=== PATIENT | female | born 1990 | race Asian ===

== ENCOUNTER 2025-03-31 02:27 | Emergency (ER) | payer BC ==
[~2025-03-31] VITALS: Ht 162.6 cm; Wt 54.4 kg
[2025-03-31] MEDS ORDERED: SUCRALFATE 1 G/10 ML UDC ONE (03:01)
[2025-03-31] MEDS ORDERED: ONDANSETRON HCL/PF 4 MG/2 ML VIAL ONE (03:01)
[2025-03-31] MEDS ORDERED: PANTOPRAZOLE 40 MG VIAL ONE (03:01)
[2025-03-31] MEDS ORDERED: FAMOTIDINE/PF INJ 20 MG/2 ML VIAL IV ONE (03:01)
[2025-03-31 03:07] LABS: PLATELET COUNT (AUTO) 236 K/uL (150-450); RED BLOOD CELL COUNT(AUTO) 4.44 MIL/uL (4.0-5.2); RED CELL DISTRIBUTION WIDTH 12.5 % (11.5-15.0); WHITE BLOOD COUNT (AUTO) 11.4 K/uL (4.3-11.0)
[2025-03-31] MEDS: ONDANSETRON HCL/PF - ER 4 MG/2 ML VIAL IV ONE (03:09)
[2025-03-31] MEDS: IV NS 0.9% 1,000 ML BAG IV ONE ×2 (03:09→03:43)
[2025-03-31] MEDS: FAMOTIDINE/PF INJ 20 MG/2 ML VIAL IV ONE (03:09)
[2025-03-31] MEDS: PANTOPRAZOLE 40 MG VIAL IV ONE (03:09)
[2025-03-31 03:20] LABS: CALCIUM, SERUM 8.8 mg/dL (8.5-10.1); CREATININE 1.5 mg/dL (0.6-1.3); SODIUM SERUM 133.0 mmol/L (136-145); UREA NITROGEN, BLOOD 24.0 mg/dL (7-18)
[2025-03-31 03:22] LABS: ASPARTATE AMINOTRANSFERASE 191.0 U/L (15-37); TOTAL PROTEIN, SERUM 7.3 g/dL (6.4-8.2)
[2025-03-31 03:43] LABS: FRACTIONATED INSPIRED OXYGEN-V 21.0 %; SITE, VBG VBG - N/A; VBG BASE EXCESS -7.2 mmol/L (-2.0-3.0); VBG HCO3 20.2 mmol/L (22.0-29.0); VBG MetHb 1.6 % (0.5-1.5); VBG OXYGEN SATURATION 21.7 % (60.0-85.0); VBG PCO2 49.0 mmHg (38.0-54.0); VBG PH 7.234 (7.320-7.430); VBG PO2 18.6 mmHg (23.0-48.0); VBG TOTAL HEMOGLOBIN 12.2 G/dL (12.0-16.0)
[2025-03-31] MEDS: SUCRALFATE 1 G/10 ML UDC PO ONE (03:43)
[2025-03-31] MEDS ORDERED: INSULIN REGULAR, HUMAN 100 UNIT/ML 10 ML VIAL ONE (03:52)
[2025-03-31] MEDS ORDERED: INSULIN REGULAR, HUMAN 100 UNIT/ML 10 ML VIAL IV ONE (04:00)
[2025-03-31] MEDS: INSULIN REGULAR, HUMAN 100 UNIT/ML 10 ML VIAL IV ONE (04:08)
[2025-03-31 05:50] LABS: CALCIUM, SERUM 8.2 mg/dL (8.5-10.1); CREATININE 1.1 mg/dL (0.6-1.3); SODIUM SERUM 141.0 mmol/L (136-145); UREA NITROGEN, BLOOD 20.0 mg/dL (7-18)
[2025-03-31 07:08] VITALS: BP 99/75; TEMP 98; O2SAT 100
== END 2025-03-31 07:09 | disposition home or self-care (01) ==
LOC: ER 02:44
DX: K52.9 Noninfective gastroenteritis and colitis, unspecified (principal); E11.9 Type 2 diabetes mellitus without complications; R11.2 Nausea with vomiting, unspecified
CPT/HCPCS: 99284; 96374; 96375; 96361; 82803 ×2; 85025; 82010; 83690; 36415; 80053; 82962 ×2; 36600; 80048; J1815; J1308; J2405 ×2; J7030; J2470